=== PATIENT | female | born 1940 | race Caucasian/White ===

== ENCOUNTER 2018-06-28 06:30 | Day surgery (SDC) | payer OTHER | END 2018-06-28 10:20 | disposition home or self-care (01) | LOC: AMB-ENDOS 06:30 | DX: D12.3 Benign neoplasm of transverse colon (principal); D12.4 Benign neoplasm of descending colon; D12.8 Benign neoplasm of rectum ==

== ENCOUNTER 2021-08-19 05:35 | Day surgery (SDC) | payer OTHER | END 2021-08-19 11:30 | disposition home or self-care (01) | LOC: AMB-ENDOS 05:35 | PROVIDERS: ATTEND Surgery | DX: D12.0 Benign neoplasm of cecum (principal); K62.82 Dysplasia of anus; Z20.822 Contact with and (suspected) exposure to COVID-19 ==

== ENCOUNTER 2021-12-30 12:15 | Inpatient (IN) | payer OTHER ==
[~2021-12-30] VITALS: Ht 157.5 cm; Wt 83.9 kg
[2021-12-31] MEDS ORDERED: NORVASC5 MG PO (08:03)
[2021-12-31] MEDS ORDERED: LOSARTAN POTASS50 MG PO (08:03)
[2021-12-31] MEDS ORDERED: SYNTHROID150 MCG PO (08:03)
[2021-12-31] MEDS ORDERED: NOVOLOG100 UNIT/1 (08:04)
[2021-12-31] MEDS ORDERED: HUMALOG100 UNIT/2 (08:04)
[2022-01-05] MEDS ORDERED: OMEGA-3 ACID ETH1 GM (15:13)
[2022-01-05] MEDS ORDERED: ROSUVASTATIN CA10 MG (15:14)
[2022-01-05] MEDS ORDERED: VITAMIN D31250 MCG (15:14)
[2022-01-11] MEDS ORDERED: ULTRAM50 MG PO (08:26)
[2022-01-11] MEDS ORDERED: INTEGRA F CAPS1 EACH PO (08:27)
[2022-01-11] MEDS ORDERED: LOPERAMIDE2 M1 PO (08:27)
== END 2022-01-11 11:50 | disposition home or self-care (01) | DRG 330 ==
LOC: O/R 01-05 05:43 → SURH 01-05 12:15
PROVIDERS: ADMIT Surgery; ATTEND Surgery
PROC: 0DTJ0ZZ Resection of Appendix, Open Approach (ICD-10-PCS; 2022-01-05)
PROC: 0DBP0ZZ Excision of Rectum, Open Approach (ICD-10-PCS; 2022-01-05)
PROC: 0DBU0ZZ Excision of Omentum, Open Approach (ICD-10-PCS; 2022-01-05)
PROC: 0D1B0Z4 Bypass Ileum to Cutaneous, Open Approach (ICD-10-PCS; 2022-01-05)
PROC: 0DJD8ZZ Inspection of Lower Intestinal Tract, Via Natural or Artificial Opening Endoscopic (ICD-10-PCS; 2022-01-05)
PROC: 0DN84ZZ Release Small Intestine, Percutaneous Endoscopic Approach (ICD-10-PCS; principal; 2022-01-05 12:15)
PROC: 0D9670Z Drainage of Stomach with Drainage Device, Via Natural or Artificial Opening (ICD-10-PCS; 2022-01-06)
PROC: 3E0G76Z Introduction of Nutritional Substance into Upper GI, Via Natural or Artificial Opening (ICD-10-PCS; 2022-01-06)
DX: C20 Malignant neoplasm of rectum (principal); N17.8 Other acute kidney failure; N18.9 Chronic kidney disease, unspecified; Z68.33 Body mass index [BMI] 33.0-33.9, adult; D21.5 Benign neoplasm of connective and other soft tissue of pelvis; Z79.4 Long term (current) use of insulin; E03.8 Other specified hypothyroidism; E66.01 Morbid (severe) obesity due to excess calories; D50.8 Other iron deficiency anemias; E11.65 Type 2 diabetes mellitus with hyperglycemia; I12.9 Hypertensive chronic kidney disease with stage 1 through stage 4 chronic kidney disease, or unspecified chronic kidney disease

== ENCOUNTER 2022-05-11 15:05 | Inpatient (IN) | payer OTHER ==
[~2022-05-11] VITALS: Ht 165.1 cm; Wt 77.1 kg
[~2022-05-11 15:05] MED LIST: HUMALOG100 UNIT/2; INTEGRA F CAPS1 EACH PO; LOPERAMIDE2 M1 PO; LOSARTAN POTASS50 MG PO; NORVASC5 MG PO; NOVOLOG100 UNIT/1; OMEGA-3 ACID ETH1 GM; ROSUVASTATIN CA10 MG; SYNTHROID150 MCG PO; ULTRAM50 MG PO; VITAMIN D31250 MCG
[2022-05-12] MEDS ORDERED: IMODIUM A-D2 M2 PO (13:41)
[2022-05-12] MEDS ORDERED: SYNTHROID175 MCG PO (13:41)
[2022-05-12] MEDS ORDERED: NORVASC5 MG PO (13:42)
[2022-05-12] MEDS ORDERED: [UNRECOGNIZED DRUG - OTHER] (13:43)
[2022-05-18] MEDS ORDERED: FERROUS GLUCON324 M1 (09:36)
[2022-05-21] MEDS ORDERED: LOPERAMIDE2 MG PO (14:45)
[2022-05-21] MEDS ORDERED: OXYCODONE HCL5 MG PO (14:47)
== END 2022-05-21 16:47 | disposition home or self-care (01) | DRG 348 ==
LOC: O/R 05-18 06:43 → SURH 05-18 06:43 → SURG 05-18 07:00 → SURH 05-18 13:42
PROVIDERS: ADMIT Surgery; ATTEND Surgery
PROC: 0DBB4ZZ Excision of Ileum, Percutaneous Endoscopic Approach (ICD-10-PCS; principal; 2022-05-18 07:00)
PROC: 4A12X4Z Monitoring of Cardiac Electrical Activity, External Approach (ICD-10-PCS; 2022-05-19)
DX: Z43.2 Encounter for attention to ileostomy (principal); C20 Malignant neoplasm of rectum; K43.5 Parastomal hernia without obstruction or gangrene; D13.30 Benign neoplasm of unspecified part of small intestine; D50.9 Iron deficiency anemia, unspecified; Z85.038 Personal history of other malignant neoplasm of large intestine; I10 Essential (primary) hypertension; R06.81 Apnea, not elsewhere classified; Z20.822 Contact with and (suspected) exposure to COVID-19; E11.9 Type 2 diabetes mellitus without complications

== ENCOUNTER 2022-05-13 07:20 | Outpatient (CLI) | payer OTHER ==
[~2022-05-13 07:20] MED LIST changes: +IMODIUM A-D2 M2 PO; +SYNTHROID175 MCG PO; +[UNRECOGNIZED DRUG - OTHER]
== END 2022-05-13 07:25 | disposition home or self-care (01) ==
LOC: RX STUDY 07:20
PROVIDERS: ATTEND Surgery
DX: K63.89 Other specified diseases of intestine (principal)

== ENCOUNTER → 2022-12-21 | Outpatient (CLI) | payer OTHER ==
[~2022-12-21] MED LIST changes: +FERROUS GLUCON324 M1; +LOPERAMIDE2 MG PO; +OXYCODONE HCL5 MG PO
== END | disposition home or self-care (01) ==
LOC: LAB 06:00 → ADM 10:00 → EDSTATUS 12-26 10:00 → CIR.AMB 12-26 10:00
PROVIDERS: ATTEND Surgery
DX: Z01.812 Encounter for preprocedural laboratory examination (principal); Z85.038 Personal history of other malignant neoplasm of large intestine; Z20.822 Contact with and (suspected) exposure to COVID-19

== ENCOUNTER 2023-02-01 06:25 | Day surgery (SDC) | payer OTHER | END 2023-02-01 10:10 | disposition home or self-care (01) | LOC: AMB-ENDOS 06:25 | PROVIDERS: ATTEND Surgery | DX: K57.30 Diverticulosis of large intestine without perforation or abscess without bleeding (principal); Z85.048 Personal history of other malignant neoplasm of rectum, rectosigmoid junction, and anus; Z88.6 Allergy status to analgesic agent; Z20.822 Contact with and (suspected) exposure to COVID-19 ==

== ENCOUNTER 2024-07-15 05:57 | Day surgery (SDC) | payer OTHER ==
[2024-07-15] MEDS ORDERED: DIPHENHYDRAMINE HCL 50 MG/ML VIAL 1ML IV ONE (08:15)
[2024-07-15] MEDS ORDERED: fentaNYL CITRATE 50 MCG/ML AMPUL IV PUSH ONE (08:15)
[2024-07-15] MEDS ORDERED: MIDAZOLAM HCL 2 MG/2 ML VIAL IV ONE (08:15)
== END 2024-07-15 10:50 | disposition home or self-care (01) ==
LOC: AMB-ENDOS 05:57
PROVIDERS: ATTEND Surgery
DX: D12.0 Benign neoplasm of cecum (principal); K63.5 Polyp of colon

== ENCOUNTER 2025-01-13 07:19 | Day surgery (SDC) | payer OTHER ==
[2025-01-13] MEDS ORDERED: MIDAZOLAM HCL 2 MG/2 ML VIAL IV ONE (10:45)
[2025-01-13] MEDS ORDERED: DIPHENHYDRAMINE HCL 50 MG/ML VIAL 1ML IV ONE (10:45)
[2025-01-13] MEDS ORDERED: fentaNYL CITRATE 50 MCG/ML AMPUL IV PUSH ONE (10:45)
== END 2025-01-13 11:45 | disposition home or self-care (01) ==
LOC: AMB-ENDOS 07:19
PROVIDERS: ATTEND Surgery
DX: D12.2 Benign neoplasm of ascending colon (principal); D12.3 Benign neoplasm of transverse colon; K63.5 Polyp of colon; K57.30 Diverticulosis of large intestine without perforation or abscess without bleeding; Z88.8 Allergy status to other drugs, medicaments and biological substances

== ENCOUNTER 2025-03-06 14:09 | Inpatient (IN) | payer OTHER ==
[~2025-03-06] VITALS: Ht 152.4 cm; Wt 77.1 kg
[2025-03-06] MEDS ORDERED: SYNTHROID112 MCG (14:21)
[2025-03-06] MEDS ORDERED: NORVASC2.5 M1 (14:22)
[2025-03-06] MEDS ORDERED: COZAAR50 MG (14:22)
[2025-03-06] MEDS ORDERED: CRESTOR40 MG (14:22)
--- NOTE | 2025-03-06 14:23 | NUR ---
PTE ALERTA Y ORIENTADO X3 REFIERE TENER CONSTIPACION MAS UN REFERIDO, SE TOMANB SV MAS SE UBICA EN CAMA 11
[2025-03-06] MEDS ORDERED: SOLIQUA 100 UNIT3 ML (14:24)
[2025-03-06] MEDS ORDERED: FAMOTIDINE/PF 20 MG/2 ML VIAL ONE (15:41)
[2025-03-06] MEDS ORDERED: ONDANSETRON HCL 2 MG/ML VIAL ONE (15:41)
[2025-03-06] MEDS ORDERED: FAMOTIDINE/PF 20 MG/2 ML VIAL IV ONE (15:45)
[2025-03-06] MEDS ORDERED: ONDANSETRON HCL 2 MG/ML VIAL IV ONE (15:45)
[2025-03-06] MEDS ORDERED: 0.9 % SODIUM CHLORIDE 500 ML IV ONE (15:45)
[2025-03-06] MEDS ORDERED: DIATRIZOATE MEGLUMINE, SODIUM 30 ML BOTTLE ONE (15:46)
--- NOTE | 2025-03-06 16:06 | NUR ---
SE ORIENTA A PACIENTE SOBRE TRATAMIENTO MEDICO, REFIERE ENTENDER. SE COLECTAN MUESTRAS DE LABORATORIO BAJO MEDIDAS ASEPTICAS. SE ADMINISTRA IV'S Y MEDICAMENTOS KACEY ORDEN MEDICA. SE COORD[address] CT. PENDIENTE RE-EVALUACION MEDICA.
--- NOTE | 2025-03-06 16:07 | NUR ---
NIKKIEE CHRISTIDA POR .
[2025-03-06 16:22] LABS: BASO % 0.6 % (0.1-1.2); EOS # 0.13 (0.04-0.54); EOS % 1.5 % (0.7-7.0); HEMATOCRIT 37.9 % (34.1-44.9); HEMOGLOBIN 12.3 g/dL (11.2-15.7); LYMPH # 2.17 (1.18-3.74); LYMPH % 24.2 % (19.3-53.1); MEAN CORPUSCULAR HEMOGLOBIN 25.4 pg (25.6-32.2); MONO # 0.57 (0.24-0.82); MONO % 6.4 % (4.7-12.5); NEUT # 6.01 (1.56-6.13); PLATELET COUNT 202 K/uL (163-369); RED BLOOD COUNT 4.84 M/uL (3.93-5.22); RED CELL DISTRIBUTION WIDTH 15.1 % (11.6-14.4)
[2025-03-06 16:34] LABS: POTASSIUM 4.96 mEq/L (3.5-5.1)
[2025-03-06 16:38] LABS: CALCIUM 9.7 mg/dL (8.5-10.1)
[2025-03-06 16:42] LABS: INR 1.02; PARTIAL THROMBOPLASTIN TIME 23.8 SECONDS (22.0-34.0); PROTHROMBIN TIME 11.1 SECONDS (9.0-11.5)
[2025-03-06 16:43] LABS: ALBUMIN 3.6 gm/dL (3.4-5.0); BILIRUBIN TOTAL 0.75 mg/dL (0.3-1.2); CREATININE SERUM 1.15 mg/dL (0.55-1.02); GFR 44.95; GLOBULINA 3.9 G/DL (2.4-3.5); TOTAL PROTEIN 7.5 gm/dL (6.4-8.2)
[2025-03-06] MEDS ORDERED: DIPHENHYDRAMINE HCL 50 MG/ML VIAL 1ML IV ONE (17:00)
[2025-03-06] MEDS ORDERED: METHYLPREDNISOLONE SOD SUCC 125 MG VIAL IV ONE (17:00)
[2025-03-06 17:19] LABS: URINE APPEARANCE Clear; URINE BILIRRUBIN Negative (NEGATIVE); URINE BLOOD Negative; URINE COLOR Yellow; URINE GLUCOSE Negative (NEGATIVE); URINE KETONE Negative (NEGATIVE); URINE LEUKOCYTE Small; URINE NITRATE Negative; URINE PROTEIN Negative (NEGATIVE); URINE UROBILINOGEN 0.2 E.U./dl
[2025-03-06 17:23] LABS: URINE BACTERIA 238.6 uL (0.0-1933); URINE EPITHELIAL CELLS 25.7 uL (0.0-38.8); URINE RBC 17.9 uL (0.0-20.8); URINE WBC 19.1 uL (0.0-23.2)
[2025-03-06] MEDS ORDERED: DIPHENHYDRAMINE HCL 50 MG/ML VIAL 1ML ONE (18:30)
[2025-03-06] MEDS ORDERED: METHYLPREDNISOLONE SOD SUCC 125 MG VIAL ONE (18:31)
[2025-03-06] MEDS ORDERED: DEXTROSE 50 % IN WATER 0.5 G/ML DISP.SYRIN IV PRN (20:30)
[2025-03-06] MEDS ORDERED: ONDANSETRON HCL 2 MG/ML VIAL IV PRN (20:30)
[2025-03-06] MEDS ORDERED: INSULIN LISPRO 1,000 UNIT/10 ML UNITS SUBCUTANEO PRN (20:30)
[2025-03-06] MEDS ORDERED: HYOSCYAMINE SULFATE 0.125 MG TAB.SUBL SL PRN (20:30)
[2025-03-06] MEDS ORDERED: ENALAPRILAT DIHYDRATE 1.25 MG/ML VIAL IV PRN (20:30)
[2025-03-06] MEDS ORDERED: 0.9 % SODIUM CHLORIDE 1,000 ML IV SCH (21:15)
[2025-03-06 22:21] VITALS: BP 146/64; O2SAT 98
[2025-03-06 22:29] LABS: INR 1.04; PARTIAL THROMBOPLASTIN TIME 25.2 SECONDS (22.0-34.0); PROTHROMBIN TIME 11.3 SECONDS (9.0-11.5)
[2025-03-07] MEDS ORDERED: PIPERACILLIN/TAZOBACTAM SODIUM 3.375 GM in DEXTROSE 5 % IN WATER 100 ML IV SCH
[2025-03-07] MEDS ORDERED: PIPERACILLIN/TAZOBACTAM SODIUM 3.375 GM VIAL IV ONE (00:21)
[2025-03-07 08:00] VITALS: BP 139/55; O2SAT 99
[2025-03-07] MEDS ORDERED: FAMOTIDINE/PF 20 MG/2 ML VIAL IV SCH (09:00)
[2025-03-07] MEDS ORDERED: DEXTROSE 50 % IN WATER 0.5 G/ML VIAL IV PRN (11:45)
[2025-03-07] MEDS ORDERED: INSULIN LISPRO 1,000 UNIT/10 ML UNITS SUBCUTANEO PRN (11:45)
[2025-03-07] MEDS ORDERED: hydrALAZINE HCL 20 MG VIAL IV PRN (11:45)
[2025-03-07] MEDS ORDERED: ENOXAPARIN SODIUM 40 MG/0.4 ML SYRINGE SUBCUTANEO NR (13:00)
[2025-03-07 16:00] VITALS: BP 109/64; O2SAT 95
[2025-03-07] MEDS ORDERED: AMLODIPINE BESYLATE 5 MG TABLET PO SCH (17:00)
[2025-03-08 00:19] VITALS: BP 108/47; O2SAT 97
[2025-03-08] MEDS ORDERED: LEVOTHYROXINE SODIUM 112 MCG TABLET PO SCH (06:00)
[2025-03-08 08:17] LABS: BASO % 0.6 % (0.1-1.2); EOS # 0.11 (0.04-0.54); EOS % 1.5 % (0.7-7.0); HEMATOCRIT 34.1 % (34.1-44.9); HEMOGLOBIN 11.1 g/dL (11.2-15.7); LYMPH # 2.45 (1.18-3.74); LYMPH % 34.4 % (19.3-53.1); MEAN CORPUSCULAR HEMOGLOBIN 25.6 pg (25.6-32.2); MONO # 0.41 (0.24-0.82); MONO % 5.8 % (4.7-12.5); NEUT % 57.4 % (34.0-71.1); PLATELET COUNT 167 K/uL (163-369); RED BLOOD COUNT 4.33 M/uL (3.93-5.22); RED CELL DISTRIBUTION WIDTH 15.5 % (11.6-14.4)
[2025-03-08 08:38] LABS: CALCIUM 8.8 mg/dL (8.5-10.1); CREATININE SERUM 1.31 mg/dL (0.55-1.02); GFR 38.68; MAGNESIUM 1.7 mg/dL (1.8-2.4); POTASSIUM 4.65 mEq/L (3.5-5.1)
[2025-03-08] MEDS ORDERED: LOSARTAN POTASSIUM 50 MG TABLET PO SCH (09:00)
[2025-03-08] MEDS ORDERED: FOLIC ACID 1 MG TABLET PO SCH (09:00)
[2025-03-08] MEDS ORDERED: ENOXAPARIN SODIUM 40 MG/0.4 ML SYRINGE SUBCUTANEO SCH (09:00)
[2025-03-08 09:07] VITALS: BP 142/62; O2SAT 100
[2025-03-08 16:00] VITALS: BP 137/69; O2SAT 98
[2025-03-08] MEDS ORDERED: ROSUVASTATIN CALCIUM 10 MG TABLET PO SCH (17:00)
[2025-03-09 00:41] VITALS: BP 142/66; O2SAT 99
[2025-03-09 08:01] VITALS: BP 144/69; O2SAT 98
[2025-03-09 08:11] LABS: BASO % 0.7 % (0.1-1.2); EOS % 4.6 % (0.7-7.0); HEMOGLOBIN 10.7 g/dL (11.2-15.7); LYMPH # 1.63 (1.18-3.74); LYMPH % 37.2 % (19.3-53.1); MEAN CORPUSCULAR HEMOGLOBIN 25.9 pg (25.6-32.2); MONO % 9.1 % (4.7-12.5); NEUT % 47.9 % (34.0-71.1); PLATELET COUNT 150 K/uL (163-369); RED BLOOD COUNT 4.13 M/uL (3.93-5.22); RED CELL DISTRIBUTION WIDTH 15.3 % (11.6-14.4)
[2025-03-09 08:26] LABS: CALCIUM 8.4 mg/dL (8.5-10.1); CREATININE SERUM 1.06 mg/dL (0.55-1.02); GFR 49.39; POTASSIUM 4.16 mEq/L (3.5-5.1)
[2025-03-09] MEDS ORDERED: INTESTINEX680 M1 PO (11:40)
== END 2025-03-09 13:19 | disposition home or self-care (01) | DRG 389 ==
LOC: ER → SURH 21:52
PROVIDERS: Emergency Medicine; General Practice; Internal Medicine Geriatric Medicine; Surgery; ADMIT Surgery; ATTEND Surgery
PROC: BW21YZZ Computerized Tomography (CT Scan) of Abdomen and Pelvis using Other Contrast (ICD-10-PCS; principal; 2025-03-06)
DX: K56.690 Other partial intestinal obstruction (principal); E87.0 Hyperosmolality and hypernatremia; K43.0 Incisional hernia with obstruction, without gangrene; K59.00 Constipation, unspecified; I10 Essential (primary) hypertension; E11.9 Type 2 diabetes mellitus without complications; E03.9 Hypothyroidism, unspecified; E78.5 Hyperlipidemia, unspecified; Z88.6 Allergy status to analgesic agent; Z79.4 Long term (current) use of insulin

== ENCOUNTER 2025-03-25 19:29 | Inpatient (IN) | payer OTHER ==
[~2025-03-25] VITALS: Ht 160 cm; Wt 68.0 kg
[~2025-03-25 19:29] MED LIST changes: +COZAAR50 MG; +CRESTOR40 MG; +INTESTINEX680 M1 PO; +NORVASC2.5 M1; +SOLIQUA 100 UNIT3 ML; +SYNTHROID112 MCG
[2025-03-25] MEDS ORDERED: 0.9 % SODIUM CHLORIDE 1,000 ML IV STA (23:35)
[2025-03-25] MEDS ORDERED: KETOROLAC TROMETHAMINE 30 MG VIAL IV STA (23:36)
[2025-03-25] MEDS ORDERED: HYOSCYAMINE SULFATE 0.125 MG TAB.SUBL SL ONE (23:45)
[2025-03-26 00:40] LABS: BASO % 0.2 % (0.1-1.2); EOS # 0.04 (0.04-0.54); EOS % 0.5 % (0.7-7.0); LYMPH # 0.77 (1.18-3.74); LYMPH % 9.4 % (19.3-53.1); MEAN PLATELET VOLUME 11.00 fl (9.4-12.4); MONO # 0.46 (0.24-0.82); MONO % 5.6 % (4.7-12.5); NEUT # 6.90 (1.56-6.13); NEUT % 83.9 % (34.0-71.1); RED CELL DISTRIBUTION WIDTH 15.0 % (11.6-14.4)
[2025-03-26 01:05] LABS: ALT/SGPT 23.0 U/L (12-78); AST/SGOT 19.0 U/L (15-37); BILIRUBIN TOTAL 0.72 mg/dL (0.3-1.2); BUN CREA RATIO 28.0 (7.0-25.0); CREATININE SERUM 0.97 mg/dL (0.55-1.02); GFR 54.71; GLOBULINA 3.4 G/DL (2.4-3.5); GLUCOSE FASTING 199.0 mg/dL (65-100); OSMOLALITY SERUM 288.0 MOSM/KG (275-295)
[2025-03-26 01:31] LABS: INR 1.0
[2025-03-26] MEDS ORDERED: RINGERS SOLUTION,LACTATED 1,000 ML IV SCH (08:00)
[2025-03-26] MEDS ORDERED: METRONIDAZOLE/SODIUM CHLORIDE 500 MG/100 ML PIGGYBACK IV ONE (13:30)
[2025-03-26] MEDS ORDERED: CEFTRIAXONE SODIUM 2,000 MG VIAL IV ONE (13:30)
[2025-03-26] MEDS ORDERED: GLIMEPIRIDE2 M1 (14:38)
[2025-03-26] MEDS ORDERED: DEXTROSE 50 % IN WATER 0.5 G/ML VIAL IV PRN (16:00)
[2025-03-26] MEDS ORDERED: MORPHINE SULFATE 4 MG/ML CARTRIDGE IV PRN (16:00)
[2025-03-26] MEDS ORDERED: 0.9 % SODIUM CHLORIDE 1,000 ML IV SCH (16:00)
[2025-03-26] MEDS ORDERED: OxyCODONE HCL 5 MG TABLET (ROXICODONE) PO PRN (16:00)
[2025-03-26] MEDS ORDERED: ONDANSETRON HCL 2 MG/ML VIAL IV PRN (16:00)
[2025-03-26] MEDS ORDERED: POLYETHYLENE GLYCOL 3350 17 GM BLIST.PACK PO SCH (17:00)
[2025-03-26] MEDS ORDERED: KETOROLAC TROMETHAMINE 30 MG VIAL IV SCH (17:00)
[2025-03-26] MEDS ORDERED: HYOSCYAMINE SULFATE 0.125 MG TAB.SUBL SL SCH (17:00)
[2025-03-26] MEDS ORDERED: SIMETHICONE 125 MG CAPSULE PO SCH (17:00)
[2025-03-26] MEDS ORDERED: METOCLOPRAMIDE HCL 5 MG/ML VIAL IV SCH (17:00)
[2025-03-26] MEDS ORDERED: DEXTROSE 50 % IN WATER 0.5 G/ML DISP.SYRIN IV PRN (19:00)
[2025-03-26] MEDS ORDERED: ENALAPRILAT DIHYDRATE 1.25 MG/ML VIAL IV PRN (19:00)
[2025-03-26] MEDS ORDERED: INSULIN LISPRO 1,000 UNIT/10 ML UNITS SUBCUTANEO PRN (19:00)
[2025-03-26 19:02] LABS: BUN CREA RATIO 23.0 (7.0-25.0); CREATININE SERUM 1.12 mg/dL (0.55-1.02); GFR 46.35; GLUCOSE FASTING 199.0 mg/dL (65-100); OSMOLALITY SERUM 295.0 MOSM/KG (275-295)
[2025-03-26] MEDS ORDERED: hydrALAZINE HCL 20 MG VIAL IV PRN (19:15)
[2025-03-26] MEDS ORDERED: MAGNESIUM SULFATE IN WATER 50 ML IV ONE (19:15)
[2025-03-26] MEDS ORDERED: ACETAMINOPHEN 500 MG GEL..CAP PO SCH (20:00)
[2025-03-26 20:10] VITALS: BP 143/59; O2SAT 96
[2025-03-26] MEDS ORDERED: AMLODIPINE BESYLATE 5 MG TABLET PO SCH (21:00)
[2025-03-26] MEDS ORDERED: FAMOTIDINE/PF 20 MG/2 ML VIAL IV PUSH SCH (21:00)
[2025-03-27 00:51] VITALS: BP 135/73; O2SAT 97
[2025-03-27] MEDS ORDERED: LEVOTHYROXINE SODIUM 112 MCG TABLET PO SCH (06:00)
[2025-03-27 08:00] VITALS: BP 117/57; O2SAT 95
[2025-03-27 08:48] LABS: BASO % 0.1 % (0.1-1.2); EOS # 0.10 (0.04-0.54); EOS % 1.4 % (0.7-7.0); LYMPH # 0.89 (1.18-3.74); LYMPH % 12.3 % (19.3-53.1); MEAN PLATELET VOLUME 11.30 fl (9.4-12.4); MONO # 0.40 (0.24-0.82); MONO % 5.5 % (4.7-12.5); NEUT # 5.83 (1.56-6.13); NEUT % 80.4 % (34.0-71.1); RED CELL DISTRIBUTION WIDTH 15.3 % (11.6-14.4)
[2025-03-27] MEDS ORDERED: LOSARTAN POTASSIUM 50 MG TABLET PO SCH (09:00)
[2025-03-27] MEDS ORDERED: LACTOBACILLUS ACIDOPHILUS 1 CAP CAP PO SCH (09:00)
[2025-03-27] MEDS ORDERED: FOLIC ACID 1 MG TABLET PO SCH (09:00)
[2025-03-27 09:16] LABS: BUN CREA RATIO 22.0 (7.0-25.0); CREATININE SERUM 1.17 mg/dL (0.55-1.02); GFR 44.07; GLUCOSE FASTING 89.0 mg/dL (65-100); OSMOLALITY SERUM 291.0 MOSM/KG (275-295)
[2025-03-27 16:00] VITALS: BP 108/53; O2SAT 95
[2025-03-27] MEDS ORDERED: ENOXAPARIN SODIUM 40 MG/0.4 ML SYRINGE SUBCUTANEO SCH (17:00)
[2025-03-27] MEDS ORDERED: ROSUVASTATIN CALCIUM 10 MG TABLET PO SCH (17:00)
[2025-03-28 08:00] VITALS: BP 131/68; O2SAT 95
[2025-03-28] MEDS ORDERED: ENOXAPARIN SODIUM 40 MG/0.4 ML SYRINGE SUBCUTANEO SCH (09:00)
[2025-03-28 16:44] VITALS: BP 98/59; O2SAT 96
[2025-03-29 00:58] VITALS: BP 123/67; O2SAT 98
[2025-03-29 16:00] VITALS: BP 198/65; O2SAT 96
[2025-03-30 01:17] VITALS: BP 106/54; O2SAT 95
[2025-03-30 08:16] LABS: BUN CREA RATIO 18.0 (7.0-25.0); CREATININE SERUM 0.89 mg/dL (0.55-1.02); GFR 60.42; GLUCOSE FASTING 122.0 mg/dL (65-100); OSMOLALITY SERUM 291.0 MOSM/KG (275-295)
[2025-03-30 08:30] VITALS: BP 165/66; O2SAT 96
== END 2025-03-30 16:46 | disposition home or self-care (01) | DRG 337 ==
LOC: ER 19:29 → SEC-K 03-26 08:17 → SURH 03-26 08:17 → O/R 03-26 08:17 → SURH 03-26 17:19
PROVIDERS: Specialist; ADMIT Surgery; ATTEND Surgery
PROC: 0WUF4JZ Supplement Abdominal Wall with Synthetic Substitute, Percutaneous Endoscopic Approach (ICD-10-PCS; 2025-03-26)
PROC: 0DN84ZZ Release Small Intestine, Percutaneous Endoscopic Approach (ICD-10-PCS; principal; 2025-03-26 14:15)
DX: K43.0 Incisional hernia with obstruction, without gangrene (principal); E03.9 Hypothyroidism, unspecified; E11.9 Type 2 diabetes mellitus without complications; Z79.4 Long term (current) use of insulin; I10 Essential (primary) hypertension